=== PATIENT | male | born 1960 | race Two or more races ===

== ENCOUNTER 2024-05-22 09:35 | Emergency (ER) | payer MEDICAID, SELFPAY ==
[2024-05-22 09:36] VITALS: BMI 32.9
[2024-05-22 09:43] VITALS: BP 145/83; PULSE 58; RESP 20; TEMP 36.6; O2SAT 97
--- NOTE | 2024-05-22 09:57 | XR_ITS ---
Examination: PA lateral chest 2 views Technique: Upright PA lateral chest 2 views Exam date and time: May 22, 2024 0957 hrs. Indications: Right upper chest pain beginning 2 days ago. Findings: Mild to moderate enlargement left ventricle Atelectasis versus scarring in the anterior lateral to the lateral view Mild vascular congestion. No lobar pneumonia Impression: Mild vascular congestion
--- NOTE | 2024-05-22 09:57 | XR_ITS ---
Examination: Shoulder,right, 3 views Technique: Shoulder AP internal rotation, AP external rotation, Y view shoulder, 3 views Exam date and time :May 22, 2024 0957 hrs. Indications: Right shoulder pain beginning 2 days ago Findings: Moderate osteopenia Moderate narrowing glenohumeral joint Moderate osteoarthritis acromioclavicular joint No fracture or shoulder dislocation Impression: Moderate narrowing glenohumeral joint Moderate osteoarthritis acromioclavicular joint
--- NOTE | 2024-05-22 11:34 | EDNOTE_ITS ---
<Statement entered by Stephanie Lorenzo MD - 05/29/24 18:12> As co-signing physician, I was present and available for consult prn. I concur with the plan and care as documented by the midlevel provider. ED Chest Pain RME/HPI General Chief Complaint: Chest Pain Stated Complaint: R-SIDED CHEST PAIN RADIATING TO R UPPER BACK X2DAY Time Seen by Provider: 05/22/24 09:37 Arrival date/time: 05/22/24 09:35 63-year-old male presents emergency department with complaints of right-sided rib pain and shoulder pain worse with movement patient symptoms ongoing for last couple of days patient reports no shortness of breath no left-sided chest pain no headache dizziness or weakness Limitations: no limitations Related Data Home Medications ?Medication ?Instructions ?Recorded ?Confirmed diclofenac sodium 75 mg 75 mg PO BID ##0 12/19/14 tablet,delayed release fluticasone furoate 27.5 2 spry NASAL QDAY #0 spry 12/19/14 mcg/actuation nasal spray,suspension (Veramyst) Previous Rx's ?Medication ?Instructions ?Recorded cyclobenzaprine 10 mg tablet 10 mg PO TID PRN muscle spasm 10 05/22/24 days #30 tab-caps ibuprofen 800 mg tablet 800 mg PO TID PRN pain #30 tabs 05/22/24 Allergies Allergy/AdvReac Type Severity Reaction Status Date / Time NKA* Allergy Uncoded 05/22/24 09:40 Review of Systems Review of Systems Systems Reviewed: All systems reviewed, normal except as documented Constitutional Constitutional: Reports system reviewed and no additional complaints, except as documented, Denies fever(s) and Denies headache(s) Eyes Eyes: Reports system reviewed and no additional complaints, except as documented and Denies blurry vision ENT Ears, Nose, Mouth, and Throat: Reports system reviewed and no additional complaints, except as documented, Denies headache(s), Denies nasal congestion and Denies nasal discharge Cardiovascular Cardiovascular: Reports system reviewed and no additional complaints, except as documented, Denies chest pain and Denies dyspnea Respiratory Respiratory: Reports system reviewed and no additional complaints, except as documented, Denies chest congestion, Denies cough and Denies dyspnea Gastrointestinal Gastrointestinal: Reports system reviewed and no additional complaints, except as documented and Denies abdominal pain Musculoskeletal Musculoskeletal: Reports system reviewed and no additional complaints, except as documented and Reports other (Right-sided rib pain) Integumentary/Breasts Skin/Breast: Reports system reviewed and no additional complaints, except as documented and Denies rash Neurologic Neurologic: Reports system reviewed and no additional complaints, except as documented, Reports as per HPI and Denies headache(s) Past Medical History Social History SMOKING STATUS: Never smoker ED Exam General Limitations: Present no limitations General appearance: Present alert and in no apparent distress Head Head exam: Present atraumatic Eye Eye exam: Present normal appearance, PERRL and EOMI ENT ENT exam: Present normal exam, normal oropharynx and mucous membranes moist Neck Neck exam: Present normal inspection, full ROM and trachea midline; Absent tenderness Chest Chest inspection: Present tenderness (Right-sided rib pain) Respiratory Respiratory exam: Present normal lung sounds bilaterally; Absent respiratory distress, wheezes, stridor or accessory muscle use Cardiovascular Cardiovascular exam: Present regular rate, normal rhythm and normal heart sounds Abdominal Exam Abdominal exam: Present soft and normal bowel sounds; Absent distention, tenderness, guarding, rebound or rigidity Extremities Exam Extremities exam: Present normal inspection, full ROM, tenderness, normal capillary refill and other (Right shoulder pain) Back Exam Back exam: Present normal inspection and full ROM Neurological Exam Neurological exam: Present alert, oriented X3 and CN II-XII intact Psychiatric Psychiatric exam: Present normal affect and normal mood Skin Skin exam: Present warm, dry, intact and normal color Course Quality Measures none Orders Category Date Time Status XR chest 2V Stat Exams 05/22/24 09:57 Completed XR shoulder RT min 2V Stat Exams 05/22/24 09:57 Completed Vital Signs Vital signs: Vital Signs Temperature 97.8 F 05/22/24 09:43 Pulse Rate 58 L 05/22/24 09:43 Respiratory Rate 20 05/22/24 09:43 Blood Pressure 145/83 H 05/22/24 09:43 Pulse Oximetry (%) 97 05/22/24 09:43 Oxygen Delivery Method Room Air 05/22/24 09:43 O2 saturation 97% room air within normal limits. Chest Pain MDM Narrative MDM Narrative:: 63-year-old male presents emergency department with complaints of right-sided rib pain and shoulder pain worse with movement patient symptoms ongoing for last couple of days patient reports no shortness of breath no left-sided chest pain no headache dizziness or weakness On exam patient well-appearing patient's not appear toxic Imaging obtained no acute emergent findings noted X-ray does show some vascular congestion which I explained to the patient is to follow-up on an outpatient basis for cardiac workup As patient has no chest pain or shortness of breath patient be discharged home at this time Patient discharged home in no distress to follow-up with primary care doctor in the next 24 to 48 hours and for any worsening symptoms to return to the ER immediately Patient data External records reviewed:: [facility] previous records Clinical information provided by:: patient Social determinants that could affect healthcare access:: none Patient has the following chronic illnesses:: None How is presenting disease/condition affected by chronic disease/condition?: no chronic disease Evaluation data The following diagnostics were reviewed and interpreted by me:: radiology exam(s) Lab and/or radiology exams considered but not ordered:: Radiology obtain Interpretation Summary: Reviewed by me Medications / Prescriptions Medications or Prescriptions considered but not ordered:: Given Medication administrations:: Given Consultations Consultation(s) initiated? (list below): No Diagnosis Chest Pain Differential Diagnosis: fracture of rib, pneumothorax, atypical chest pain and costochondritis Most likely diagnosis given after review of the tests above:: Rib pain, shoulder pain, vascular congestion Admission Indicated Admission indicated?: not indicated Admission Request Was there a request for admission?: No Disposition Plan Disposition Plan: Discharge Discharge Attestation Discharge Attestation: The patient and all family members were given an opportunity to ask questions and understood the discharge instructions. Discharge instructions specifically effects, indications for sooner follow up or return to the emergency department, and the expected course of current diagnosis. Patient condition: Stable Discharge Plan Plan Patient Disposition: HOME (Self Care) Disposition Comment: Stable Prescriptions/Referrals Prescriptions/Med Rec: New cyclobenzaprine 10 mg tablet 10 mg PO TID PRN (Reason: muscle spasm) 10 Days Qty: 30 0RF ibuprofen 800 mg tablet 800 mg PO TID PRN (Reason: pain) Qty: 30 0RF No Action diclofenac sodium 75 MG tablet,delayed release (DR/EC) 75 mg PO BID Qty: 0 fluticasone furoate [Veramyst] 10 GM spray,suspension 2 spry NASAL QDAY Qty: 0 Referrals: Heide Finch FNP [Primary Care Provider] - 05/24/24 Problem List Clinical Impression: Acute shoulder pain, Rib pain on right side, Pulmonary vascular congestion Patient/Caregiver Discharge Instructions Education Materials: ED Chest Pain, Noncardiac Additional Instructions: Please follow up with your primary care doctor in the next 24-48hrs for any worsening symptoms return here immediately Please follow-up with PCP or to get a cardiac workup for vascular congestion Print Language: Uzbek Stand Alone Forms: Nay Award Info., Work/School Release, Patient Portal Info Letter PA/BUFFING AND SUEDING MACHINE OPERATOR Supervising Physician PA/BUFFING AND SUEDING MACHINE OPERATOR Supervising Physician: Dr. LORENZO
== END 2024-05-22 12:00 | disposition home or self-care (01) ==
PROVIDERS: Emergency Provider Emergency Medicine; PCP Nurse Practitioner Family
DX: R07.81 Pleurodynia (principal); M25.511 Pain in right shoulder; R09.89 Other specified symptoms and signs involving the circulatory and respiratory systems
CPT/HCPCS: 71046; 73030; 99283

== ENCOUNTER 2024-06-03 16:30 | Outpatient (RCR) | payer MEDICAID, SELFPAY ==
--- NOTE | 2024-05-17 15:21 | PTNOTE_ITS ---
PT OP Initial Eval Patient Information Outpatient Physical Therapy Treatment Date: 05/17/24 Visit Reasons: Pain in left shoulder Medical Diagnosis: M25.512 Treatment Dx #1: L shoulder pain Start of Care: 05/17/24 Date of Onset: 3 months ago Smoking Status Smoking Status: Never smoker Initial Assessment Subjective: Pt is 63 yr old malawian speaking male who reports L shoulder pain x3 months that limits reaching [place] and lifting things. He is not working outside the home but does HH chores sometimes with pain. He points to the scapulae as site of pain. 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 He would benefit from skilled therapy in order to meet goals and has fair rehab potential. Short Term and Penitentiary Goals 1. Ind with HEP ? 2. Improved AROM of R shoulder to at least 135 deg FF, 125 deg abduction and 90 deg ? ER ? 3. Tolerate work duties x6 hrs with <=3/10 L shoulder pain ? 4. Pt will reach [place] x10 with <=4/10 pain Treatment Plan 1. Manual therapy ? 2. Therex ? 3. Modalities as indicated, moist heat pack, ice, electrical stimulation, Frequency and Duration: 1-2x a week for 12 visits plus eval Certification Dates: 05/17/24 to 08/14/24 Procedure Charges OP PT Eval Mod Complex 30 minutes: Yes
--- NOTE | 2024-05-26 17:37 | PT.ODAYNRPT ---
PT Outpatient Daily Note OP Daily Note Outpatient Physical Therapy Treatment Date: 05/26/24 Visit Reasons: Pain in left shoulder Subjective: Less L shoulder pain since last visit Objective: See F/S for therex Assessment: Low tissue irritability with resistive therex Plan: Continue per POC Length of Time (minutes) of Treatment: 30 Minutes Procedure Charges Therapeutic Exercise 30 minutes: Yes
--- NOTE | 2024-06-03 19:18 | PT.ODAYNRPT ---
PT Outpatient Daily Note OP Daily Note Outpatient Physical Therapy Treatment Date: 06/03/24 Visit Reasons: Pain in left shoulder Subjective: Less L shoulder pain since last visit Objective: See F/S for therex Assessment: Low tissue irritability with resistive therex Plan: Continue per POC Length of Time (minutes) of Treatment: 30 Minutes Procedure Charges Therapeutic Exercise 30 minutes: Yes
== END 2024-06-04 23:59 | disposition home or self-care (01) ==
LOC: CPTX 16:30
PROVIDERS: PCP Nurse Practitioner Family; Referring Provider Nurse Practitioner Family; Visit Provider Nurse Practitioner Family
DX: M25.512 Pain in left shoulder (principal)
CPT/HCPCS: 97110; 97162

== ENCOUNTER 2024-06-09 15:19 | Outpatient (RCR) | payer MEDICAID, SELFPAY ==
--- NOTE | 2024-06-09 17:47 | PT.ODAYNRPT ---
PT Outpatient Daily Note OP Daily Note Outpatient Physical Therapy Treatment Date: 06/09/24 Visit Reasons: Pain in left shoulder Subjective: Less L shoulder pain since last visit Objective: See F/S for therex Assessment: Low tissue irritability with resistive therex Plan: Continue per POC Length of Time (minutes) of Treatment: 30 Minutes Procedure Charges Therapeutic Exercise 30 minutes: Yes
== END 2024-07-02 23:59 | disposition home or self-care (01) ==
LOC: CPTX 15:19
PROVIDERS: PCP Nurse Practitioner Family; Referring Provider Nurse Practitioner Family; Visit Provider Nurse Practitioner Family
DX: M25.512 Pain in left shoulder (principal); E11.9 Type 2 diabetes mellitus without complications; I10 Essential (primary) hypertension
CPT/HCPCS: 97110

== ENCOUNTER 2024-06-15 21:10 | Inpatient (IN) | payer MEDICAID, SELFPAY ==
--- NOTE | 2024-06-15 21:22 | EKG_ITS ---
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
[2024-06-15 21:25] VITALS: BP 170/88; PULSE 75; RESP 18; TEMP 36.7; O2SAT 97; BMI 30.1
--- NOTE | 2024-06-15 21:52 | XR_ITS ---
Examination: CT brain head without contrast. 2-D sagittal coronal reconstructions Date and time of exam:June 15, 2024 11:11 PM Indications: Headaches with left arm numbness today CTDI: vol (mGy):47.1 DLP: (mGycm):945 Technique: Multiple CT axial sections of the brain have been obtained, 5 mm slice thickness. Contrast has not been administered. 2-D sagittal, coronal reconstructions have been obtained Low dose protocols were performed. One or more of the following dose reduction techniques were used; automated exposure control, adjustment of the mA and/or KV according to patient size, use of iterative reconstruction technique. Findings: No significant ventricular enlargement. 15 mm low-density lesion posterior left parietal lobe Intra-axial or extra-axial hemorrhage density is not seen. No mass effect or midline shift Basal cisterns are not remarkable. Fourth ventricle is midline. Cranial vault intact. Impression: Negative for acute hemorrhage, mass effect or midline shift 15 mm low-density lesion posterior left parietal lobe, differential would include early infarct, early neoplastic lesion not excluded Recommend brain MRI MRA follow-up pre and postcontrast
--- NOTE | 2024-06-15 21:59 | PD.EDADULT ---
ED General RME/HPI General Chief complaint: General Adult/Misc Complain Stated complaint: LEFT ARM NUMBNESS Time Seen by Provider: 06/15/24 21:53 Arrival date/time: 06/15/24 21:10 RME / HPI RME / HPI narrative: Patient is a 63-year-old male who presents with complaint of his left arm being asleep . He states that approximately 2 hours ago he noticed that his left arm seemed heavy and seemed like it was asleep. He was able to move the extremity but says it felt very heavy. He states that this made him anxious. The symptoms resolved on arrival to the ED and he does not feel heaviness now. All symptoms have resolved. He denies any slurred speech or facial droop. Denies headache. Related Data Home Medications ?Medication ?Instructions ?Recorded ?Confirmed diclofenac sodium 75 mg 75 mg PO BID ##0 12/19/14 tablet,delayed release fluticasone furoate 27.5 2 spry NASAL QDAY #0 spry 12/19/14 mcg/actuation nasal spray,suspension (Veramyst) Previous Rx's ?Medication ?Instructions ?Recorded ibuprofen 800 mg tablet 800 mg PO TID PRN pain #30 tabs 05/22/24 Allergies Allergy/AdvReac Type Severity Reaction Status Date / Time NKA* Allergy Uncoded 06/15/24 21:12 Review of Systems Review of Systems Narrative Review of Systems: Review of systems negative except as outlined in the HPI. Past Medical History Social History SMOKING STATUS: Never smoker ED Exam Narrative Physical exam: Constitutional: no acute distress, age appropriate, non-toxic Eyes: PERRL, conjunctivae w/o pallor, EOMI HENT: normocephalic, atraumatic. Oral mucosa moist Respiratory Effort: no stridor, effort normal, no retractions Breath sounds: Clear bilaterally; No rales, No rhonchi, No wheezing Cardiovascular: regular rhythm, S1 and S2 normal, no murmur Musculoskeletal: no deformities, no swelling, no LE edema Skin: warm, dry; No rash Neurology: alert, oriented X 4. Normal gait. Cranial nerves II through XII intact. 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 Sensation intact to light touch bilateral upper extremities. 5 out of 5 strength bilateral upper extremities. Normal finger-nose. Psychology: cooperative, normal mood Course Quality Measures Suspected type of Stroke: TIA Last known well (date): 06/16/24 Last known well (time): 20:00 Tenecteplase given: Reason(s) TPA not given: Stroke severity too mild (non-disabling) (and neurologist did not recommend TPA) not given stroke Orders Category Date Time Status Economic Historian NOW Care 06/16/24 00:16 Active EKG (ED ONLY) *Do not use* NOW Care 06/15/24 21:22 Completed Insert IV NOW Care 06/16/24 00:16 Active NPO NOW Care 06/16/24 00:16 Active Consult to Neurology / Tele-Neurology Stat Cons 06/16/24 00:[address] head/brain wo con Stat Exams 06/15/24 21:52 Completed EKG (ED Only) Stat Exams 06/15/24 21:22 Draft CBC Stat Lab 06/15/24 22:11 Completed CMP [Comprehensive Metabolic Panel] Stat Lab 06/15/24 22:11 Completed Magnesium Stat Lab 06/16/24 00:19 Completed Partial Thromboplastin Time Stat Lab 06/16/24 00:19 Completed Prothrombin Time with INR Stat Lab 06/16/24 00:19 Completed Troponin I Stat Lab 06/15/24 22:11 Completed Urinalysis, C/S if Indicated Stat Lab 06/16/24 00:57 Ordered Aspirin Med 06/16/24 00:41 Discontinued 325 mg PO X1 ONE Clopidogrel [Plavix] Med 06/16/24 00:41 Discontinued 300 mg PO X1 ONE Vital Signs Vital signs: Vital Signs Temperature 98.1 F 06/15/24 21:25 Pulse Rate 75 06/15/24 21:25 Respiratory Rate 18 06/15/24 21:25 Blood Pressure 170/88 H 06/15/24 21:25 Pulse Oximetry (%) 97 06/15/24 21:25 Oxygen Delivery Method Room Air 06/15/24 21:25 [facility] Patient data External records reviewed:: [facility] previous records Clinical information provided by:: patient Social determinants that could affect healthcare access:: none Patient has the following chronic illnesses:: None How is presenting disease/condition affected by chronic disease/condition?: no chronic disease Evaluation data The following diagnostics were reviewed and interpreted by me:: lab results, radiology exam(s) and EKG tracing(s) Lab and/or radiology exams considered but not ordered:: None Interpretation Summary: EKG medically necessary in the evaluation of stroke symptoms and interpreted by me and ED physician at the time of patient evaluation. Sinus rhythm with a rate of 72. WI and QT intervals within normal limits. No ST/T changes. No STEMI. Interpretation: Normal EKG CBC shows no leukocytosis or anemia CMP shows no electrolyte abnormalities, no CESILIA. LFTs normal Troponin within normal limits Examination: CT brain head without contrast. 2-D sagittal coronal reconstructions Date and time of exam:June 15, 2024 11:11 PM Indications: Headaches with left arm numbness today Findings: No significant ventricular enlargement. 15 mm low-density lesion posterior left parietal lobe Intra-axial or extra-axial hemorrhage density is not seen. No mass effect or midline shift Basal cisterns are not remarkable. Fourth ventricle is midline. Cranial vault intact. Impression: Negative for acute hemorrhage, mass effect or midline shift 15 mm low-density lesion posterior left parietal lobe, differential would include early infarct, early neoplastic lesion not excluded Recommend brain MRI MRA follow-up pre and postcontrast Medications Medications considered but not ordered:: None Medication administrations:: Medication Administration History Discontinued Medications Aspirin (Aspirin 325 Mg Tablet) 325 mg PO X1 ONE Stop: 06/16/24 00:42 Last Admin: 06/16/24 01:08 Dose: 325 mg Documented By: JULIEN Clopidogrel Bisulfate (Clopidogrel Bisulfate 75 Mg Tablet) 300 mg PO X1 ONE Stop: 06/16/24 00:42 Last Admin: 06/16/24 01:07 Dose: 300 mg Documented By: JULIEN N/A Consultations Consultation(s) initiated? (list below): No Diagnosis Differential Diagnosis ED Complaint MDM: See MDM section Most likely diagnosis given after review of the tests above:: TIA Admission Indicated Admission indicated?: indicated Explain why admission is indicated or not indicated:: Patient requires admission for stroke workup Admission Request Was there a request for admission?: Yes Admission Attestation Admission request attestation: Discussed case with resident, Dr. Cid from Hospitalist service regarding admission. Discussed patients ED course, exam findings, labs, and radiology results. The Hospitalist agrees to accept the patient for admission. Disposition Plan Disposition Plan: Admit Medical Decision Making MDM Narrative MDM Narrative: 63-year-old male presents with heaviness of his left upper extremity. His neurologic exam is nonfocal and his symptoms have resolved. Differential diagnoses include TIA, stroke, anxiety, psychosomatic symptoms, cervical radiculopathy. 0010: CT shows a 15 mm infarct vs neoplasm. A stroke alert was called at 0010. Case discussed with Dr. Acuna 0045: Case discussed with teleneurologist on-call, Dr. Landrum, recommends aspirin and Plavix, and admission for stroke workup NIHSS: 0 Patient started on loading dose of aspirin and Plavix per neurology recommendation. Case was discussed with hospitalist resident and patient will be admitted to the hospitalist service for further care Differential Diagnosis Differential Diagnosis: See MDM section Lab Data 06/15/24 22:11 06/15/24 22:11 Labs: Lab Results 06/15/24 06/16/24 Range/Units 22:11 00:19 WBC 8.9 (3.8-10.6) Thou/mm3 RBC 4.20 L (4.50-5.90) Miln/mm3 Hgb 13.2 L (13.5-16.0) g/dL Hct 38.8 L (41.0-53.0) % MCV 92 (80-100) fL MCH 31.4 (25.0-35.0) pg MCHC 34.0 (31.0-37.0) g/dl RDW Std Deviation 43.8 (35.1-43.9) fL Plt Count 383 (140-440) Thou/mm3 Neut % (Auto) 61 (37-80) % Lymph % (Auto) 27 (10-50) % [place] % (Auto) 8 (0-12) % Eos % (Auto) 4 (0-10) % Baso % (Auto) 1 (0-2.5) % Neut # (Auto) 5.4 (1.8-7.7) Thou/mm3 Lymph # (Auto) 2.4 (1.0-4.8) Thou/mm3 [place] # (Auto) 0.7 (0.0-0.8) Thou/mm3 Eos # (Auto) 0.3 (0.0-0.5) Thou/mm3 Baso # (Auto) 0.1 (0.0-0.2) Thou/mm3 Immature Gran # (Auto) 0.01 H (0.00-0.00) Thou/mm3 Absolute Nucleated RBC 0.00 (0.00-0.00) Thou/mm3 Immature Gran % 0 (0-0) % Nucleated RBC % 0 (0) /100 WBC PT 10.8 (9.0-12.2) Seconds INR 1.0 (0.9-1.3) APTT 26.9 (22.0-36.0) Seconds Sodium 144 (136-145) mMol/L Potassium 3.5 (3.4-5.1) mMol/L Chloride 108 H (98-107) mMol/L Carbon Dioxide 28.8 (20.0-31.0) mMol/L Anion Gap 7 (7-16) BUN 14 (9-23) mg/dL Creatinine 0.7 (0.6-1.3) mg/dL Estim Creat Clear Calc 109.3 (>60) mL/min eGFR > 60 (60 - ) See Note BUN/Creatinine Ratio 20 (12-20) Ratio Glucose 150 H (74-106) mg/dL Calculated Osmolality 290 (275-295) Calcium 9.8 (8.3-10.6) mg/dL Corrected Calcium 9.8 (8.5-10.1) mg/dL Magnesium 2.3 (1.6-2.6) mg/dL Total Bilirubin 0.5 (0.3-1.2) mg/dL AST 21 (0-34) U/L ALT 26 (10-49) U/L Alkaline Phosphatase 71 (46-116) U/L Troponin I < 0.020 (0.0-0.045) ng/mL Total Protein 7.9 (5.7-8.2) gm/dL Albumin 4.8 (3.4-4.8) gm/dL Globulin 3.1 (2.3-3.5) gm/dL Albumin/Globulin Ratio 1.5 (1.2-2.2) Critical Care Time Critical Care Time Critical Care Time: Yes Total Critical Care Time (min.): 35 Attestation: Due to a high probability of clinically significant, life threatening deterioration, the patient required my highest level of preparedness to intervene emergently and I personally spent this critical care time directly and personally managing the patient. This critical care time included obtaining a history; examining the patient; pulse oximetry; ordering and review of studies; arranging urgent treatment with development of a management plan; evaluation of patient's response to treatment; frequent reassessment; and, discussions with other providers. This critical care time was performed to assess and manage the high probability of imminent, life-threatening deterioration that could result in multi-organ failure. It was exclusive of separately billable procedures and treating other patients. Please see MDM section and the rest of the note for further information on patient assessment and treatment. Systems at risk: Neurologic Discharge Plan Plan Patient Disposition: Admit Acute Care w/in Hospital Prescriptions/Referrals Prescriptions/Med Rec: No Action diclofenac sodium 75 MG tablet,delayed release (DR/EC) 75 mg PO BID Qty: 0 fluticasone furoate [Veramyst] 10 GM spray,suspension 2 spry NASAL QDAY Qty: 0 ibuprofen 800 mg tablet 800 mg PO TID PRN (Reason: pain) Qty: 30 0RF Referrals: Heide Finch FNP [Primary Care Provider] - In 1 week Problem List Clinical Impression: Brain TIA, Left arm weakness Patient/Caregiver Discharge Instructions Print Language: Indonesian Stand Alone Forms: Nay Award Info., Patient Portal Info Letter
[2024-06-15 22:36] LABS: Basophils % (Auto) 1 % (0-2.5); Eosinophils % (Auto) 4 % (0-10); Hematocrit 38.8 % (41.0-53.0); Hemoglobin 13.2 g/dL (13.5-16.0); Lymphocytes # (Auto) 2.4 Thou/mm3 (1.0-4.8); Lymphocytes % (Auto) 27 % (10-50); Mean Corpuscular Hemoglobin 31.4 pg (25.0-35.0); Mean Corpuscular Volume 92 fL (80-100); Monocytes # (Auto) 0.7 Thou/mm3 (0.0-0.8); Monocytes % (Auto) 8 % (0-12); Neutrophils # (Auto) 5.4 Thou/mm3 (1.8-7.7); Neutrophils % (Auto) 61 % (37-80); Platelet Count 383 Thou/mm3 (140-440); RDW Standard Deviation 43.8 fL (35.1-43.9); White Blood Count 8.9 Thou/mm3 (3.8-10.6)
[2024-06-15 22:37] LABS: Basophils # (Auto) 0.1 Thou/mm3 (0.0-0.2); Eosinophils # (Auto) 0.3 Thou/mm3 (0.0-0.5); Immature Granulocytes % (Auto) 0 % (0-0); Immature Granulocytes Auto 0.01 Thou/mm3 (0.00-0.00); Nucleated Red Blood Cell % 0 /100 WBC (0)
[2024-06-15 22:58] LABS: Alanine Aminotransferase 26 U/L (10-49); Albumin, Serum 4.8 gm/dL (3.4-4.8); Albumin/Globulin Ratio 1.5 (1.2-2.2); Alkaline Phosphatase 71 U/L (46-116); Anion Gap 7 (7-16); Aspartate Amino Transferase 21 U/L (0-34); BUN/Creatinine Ratio 20 Ratio (12-20); Bilirubin,Total 0.5 mg/dL (0.3-1.2); Blood Urea Nitrogen 14 mg/dL (9-23); Calcium 9.8 mg/dL (8.3-10.6); Calcium (Corrected) 9.8 mg/dL (8.5-10.1); Carbon Dioxide 28.8 mMol/L (20.0-31.0); Chloride 108 mMol/L (98-107); Creatinine (Component) 0.7 mg/dL (0.6-1.3); Estimated Creatinine Clearance 109.3 mL/min (>60); Globulin 3.1 gm/dL (2.3-3.5); Glucose 150 mg/dL (74-106); Osmolality,Calculated 290 (275-295); Potassium 3.5 mMol/L (3.4-5.1); Sodium 144 mMol/L (136-145); Total Protein 7.9 gm/dL (5.7-8.2); Troponin I < 0.020 ng/mL (0.0-0.045); eGFR > 60 See Note
[2024-06-16] VITALS (39 sets, daily range): BP systolic 130–172; BP diastolic 63–94; PULSE 56–74; RESP 11–22; TEMP 36.5–36.7; O2SAT 94–98
--- NOTE | 2024-06-16 | XR_ITS ---
Examination: MRI brain without intravenous contrast. Date and time of exam: May 16, 2024 at 0715 hrs. Indications: Onset yesterday and eighth left arm numbness weakness Technique: Multiple axial and sagittal images of the brain obtained. Siemens high-resolution 1.5 Beatrice short bore scanners utilized. Sagittal sections, T1-weighted, TR 500, TE 14, are performed. Axial sections proton-density and T2-weighted have been obtained. Inversion recovery axial images, TR 9, 260, TE 111, TI 2500. Diffusion weighted images, axial sections, TR 4800, TE 128, B value 1000 Axial sections, ADC map, TR 4800, TE 128 Findings: Enlargement of the sella turcica is not present. The optic chiasm and infundibular are not remarkable. Prepontine and interpeduncular cisterns are not enlarged. There is no localized enlargement of the medulla or marta. Fourth ventricle and cerebellar tonsils appear normal in position. No subacute area of hemorrhage density is seen. Mass in the cerebellopontine angle region is not evident. Globes symmetrical. Orbital musculature including medial lateral rectus muscles do not exhibit abnormality. Diffusion-weighted images demonstrate no focus of restricted diffusion. Increased white matter signal prominent, multiple punctate foci increased signal throughout the white matter Mass effect upon the ventricular system is not identified. Impression: Negative for acute hemorrhage mass effect or midline shift No acute infarct Multiple punctate foci increased signal throughout the white matter, seen with demyelinating disease, clinical correlation advised
--- NOTE | 2024-06-16 00:13 | PC.NURSE ---
[facility] CASE # [id number].
--- NOTE | 2024-06-16 00:36 | PC.NURSE ---
PATIENT DENIES ANY PAIN AT THIS TIME, STATES ALL NUMBNESS AND EVERYTHING HE FELT AT HOME IS GONE.
--- NOTE | 2024-06-16 00:43 | ESCONSULT_ITS ---
Tele Neuro Consultation Consultation Date 06/16/24 Most Recent Vital Signs Last Vital Signs Temp 97.9 F 06/16/24 00:20 Pulse 63 06/16/24 00:34 Resp 17 06/16/24 00:34 BP 156/63 H 06/16/24 00:34 Pulse Ox 96 06/16/24 00:34 O2 Del Method Room Air 06/16/24 00:20 Consultation Narrative [facility] Tele[facility] Patient Name:???Matthew White Date of :???1960 Identification Number:??? Date of Service:???06/16/2024 00:13:07 Diagnosis: ?G45.9 - Transient cerebral ischemic attack, unspecified Impression: ?63 yo M who presented for evaluation of acute onset of LUE numbness and heaviness. His symptoms improved, and neurologic exam was grossly non-focal. Overall, his presentation is concerning for possible TIA. Recommend empiric initiation of DAPT and admission for further stroke/TIA workup as discussed below. Our recommendations are outlined below. Recommendations: ? Stroke/Telemetry Floor ? Neuro Checks ? Bedside Swallow Eval ? DVT Prophylaxis ? IV Fluids, Normal Saline ? Head of Bed 30 Degrees ? Euglycemia and Avoid Hyperthermia (PRN Acetaminophen) ?Please load with ASA 325 mg followed by 81 mg daily thereafter ?Please load with Plavix 300 mg followed by 75 mg daily thereafter ?Routine MRI brain without contrast to evaluate for acute stroke ?Routine CTA head and neck to evaluate for large artery atherosclerotic disease; may alternatively obtain MRA head/neck without contrast if preferred ?TTE to assess for intracardiac abnormalities ?Telemetry to monitor for occult arrhythmias ?Lipid panel and hemoglobin A1c to assess for modifiable stroke risk factors Sign Out: ? Discussed with Emergency Department Provider Advanced Imaging: Advanced Imaging Deferred because: Non-disabling symptoms as verified by the patient; no cortical signs so not consistent with LVO Metrics: Last Known Well: 06/15/2024 20:00:00 Dispatch Time: 06/16/2024 00:13:07 Arrival Time: 06/15/2024 21:10:00 Initial Response Time: 06/16/2024 00:14:36Symptoms: LUE numbness/heaviness. Initial patient interaction: 06/16/2024 00:18:05 NIHSS Assessment Completed: 06/16/2024 00:27:09Patient is not a candidate for Thrombolytic. Thrombolytic Medical Decision: 06/16/2024 00:27:10Patient was not deemed candidate for Thrombolytic because of following reasons: Resolved symptoms . CT head showed no acute hemorrhage or acute core infarct. I personally Reviewed the CT Head and it Showed no acute process Primary Provider Notified of Diagnostic Impression and Management Plan on: 06/16/2024 00:42:46 History of Present Illness:Patient is a 63 year old Male. Patient was brought by private transportation with symptoms of LUE numbness/heaviness. Patient was last known normal around 8 PM on 06/15. Around that time, patient developed acute onset of LUE numbness followed by heaviness. He denied any hi story of similar symptoms and further denied any associated headache, speech changes, vision changes, or right-sided deficits. Since symptom onset, patient reports that his symptoms have resolved. Past Medical History: ?Hypertension ?Diabetes Mellitus ?Hyperlipidemia Medications: No Anticoagulant use? No Antiplatelet use Reviewed EMR for current medications Allergies:? NKDA Social History: Smoking: Former Family History: There is no family history of premature cerebrovascular disease pertinent to this consultation ROS : 14 Points Review of Systems was performed and was negative except mentioned in HPI. Past Surgical History: There Is No Surgical History Contributory To Today?s Visit Examination: BP(153/63),?Pulse(63), 1A: Level of Consciousness - Alert; keenly responsive?+ 0 1B: Ask Month and Age - Both Questions Right?+ 0 1C: Blink Eyes & Squeeze Hands - Performs Both Tasks?+ 0 2: Test Horizontal Extraocular Movements - Normal?+ 0 3: Test Visual Reynoso - No Visual Loss?+ 0 4: Test Facial Palsy (Use Grimace if Obtunded) - Normal symmetry?+ 0 5A: Test Left Arm Motor Drift - No Drift for 10 Seconds?+ 0 5B: Test Right Arm Motor Drift - No Drift for 10 Seconds?+ 0 6A: Test Left Leg Motor Drift - No Drift for 5 Seconds?+ 0 6B: Test Right Leg Motor Drift - No Drift for 5 Seconds?+ 0 7: Test Limb Ataxia (FNF/Heel-Hyde) - No Ataxia?+ 0 8: Test Sensation - Normal; No sensory loss?+ 0 9: Test Language/Aphasia - Normal; No aphasia?+ 0 10: Test Dysarthria - Normal?+ 0 11: Test Extinction/Inattention - No abnormality?+ 0 NIHSS Score:?0 Pre-Morbid Modified Upson Scale:0 Points = No symptoms at all Spoke with :?Thiago Perdomo This consult was conducted in real time using interactive audio and video technology. Patient was informed of the technology being used for this visit and agreed to proceed. Patient located in hospital and provider located at home/o ice setting. Patient is being evaluated for possible acute neurologic impairment and high probability of imminent or life-threatening deterioration. I spent total of 30 minutes providing care to this patient, including time for face to face visit via telemedicine, review of medical records, imaging studies and discussion of findings with providers, the patient and/or family. Dr Rodney Landrum [facility] For Inpatient follow-up with [facility] physician please call [facility] at . As we are not an outpatient service for any post hospital discharge needs please contact the hospital for assistance. If you have any questions for the [facility] physicians or need to reconsult for clinical or diagnostic changes please contact us via [facility] at .
--- NOTE | 2024-06-16 00:52 | PD.TNEURO ---
Tele Neuro Consultation Consultation Date 06/16/24 Most Recent Vital Signs Last Vital Signs Temp 97.9 F 06/16/24 00:20 Pulse 63 06/16/24 00:34 Resp 17 06/16/24 00:34 BP 156/63 H 06/16/24 00:34 Pulse Ox 96 06/16/24 00:34 O2 Del Method Room Air 06/16/24 00:20 Consultation Narrative [facility] Patient Name:???Matthew White Date of :???1960 Identification Number:??? Date of Service:???06/16/2024 00:13:07 Diagnosis: ?G45.9 - Transient cerebral ischemic attack, unspecified Impression: ?63 yo M who presented for evaluation of acute onset of LUE numbness and heaviness. His symptoms improved, and neurologic exam was grossly non-focal. Overall, his presentation is concerning for possible TIA. Recommend empiric initiation of DAPT and admission for further stroke/TIA workup as discussed below. Our recommendations are outlined below. Recommendations: ? Stroke/Telemetry Floor ? Neuro Checks ? Bedside Swallow Eval ? DVT Prophylaxis ? IV Fluids, Normal Saline ? Head of Bed 30 Degrees ? Euglycemia and Avoid Hyperthermia (PRN Acetaminophen) ?Please load with ASA 325 mg followed by 81 mg daily thereafter ?Please load with Plavix 300 mg followed by 75 mg daily thereafter ?Routine MRI brain without contrast to evaluate for acute stroke ?Routine CTA head and neck to evaluate for large artery atherosclerotic disease; may alternatively obtain MRA head/neck without contrast if preferred ?TTE to assess for intracardiac abnormalities ?Telemetry to monitor for occult arrhythmias ?Lipid panel and hemoglobin A1c to assess for modifiable stroke risk factors Sign Out: ? Discussed with Emergency Department Provider Advanced Imaging: Advanced Imaging Deferred because: Non-disabling symptoms as verified by the patient; no cortical signs so not consistent with LVO Metrics: Last Known Well: 06/15/2024 20:00:00 Dispatch Time: 06/16/2024 00:13:07 Arrival Time: 06/15/2024 21:10:00 Initial Response Time: 06/16/2024 00:14:36Symptoms: LUE numbness/heaviness. Initial patient interaction: 06/16/2024 00:18:05 NIHSS Assessment Completed: 06/16/2024 00:27:09Patient is not a candidate for Thrombolytic. Thrombolytic Medical Decision: 06/16/2024 00:27:10Patient was not deemed candidate for Thrombolytic because of following reasons: Resolved symptoms . CT head showed no acute hemorrhage or acute core infarct. I personally Reviewed the CT Head and it Showed no acute process Primary Provider Notified of Diagnostic Impression and Management Plan on: 06/16/2024 00:42:46 History of Present Illness:Patient is a 63 year old Male. Patient was brought by private transportation with symptoms of LUE numbness/heaviness. Patient was last known normal around 8 PM on 06/15. Around that time, patient developed acute onset of LUE numbness followed by heaviness. He denied any history of similar symptoms and further denied any associated headache, speech changes, vision changes, or right-sided deficits. Since symptom onset, patient reports that his symptoms have resolved. Past Medical History: ?Hypertension ?Diabetes Mellitus ?Hyperlipidemia Medications: No Anticoagulant use? No Antiplatelet use Reviewed EMR for current medications Allergies:? NKDA Social History: Smoking: Former Family History: There is no family history of premature cerebrovascular disease pertinent to this consultation ROS : 14 Points Review of Systems was performed and was negative except mentioned in HPI. Past Surgical History: There Is No Surgical History Contributory To Today?s Visit Examination: BP(153/63),?Pulse(63), 1A: Level of Consciousness - Alert; keenly responsive?+ 0 1B: Ask Month and Age - Both Questions Right?+ 0 1C: Blink Eyes & Squeeze Hands - Performs Both Tasks?+ 0 2: Test Horizontal Extraocular Movements - Normal?+ 0 3: Test Visual Reynoso - No Visual Loss?+ 0 4: Test Facial Palsy (Use Grimace if Obtunded) - Normal symmetry?+ 0 5A: Test Left Arm Motor Drift - No Drift for 10 Seconds?+ 0 5B: Test Right Arm Motor Drift - No Drift for 10 Seconds?+ 0 6A: Test Left Leg Motor Drift - No Drift for 5 Seconds?+ 0 6B: Test Right Leg Motor Drift - No Drift for 5 Seconds?+ 0 7: Test Limb Ataxia (FNF/Heel-Hyde) - No Ataxia?+ 0 8: Test Sensation - Normal; No sensory loss?+ 0 9: Test Language/Aphasia - Normal; No aphasia?+ 0 10: Test Dysarthria - Normal?+ 0 11: Test Extinction/Inattention - No abnormality?+ 0 NIHSS Score:?0 Pre-Morbid Modified [place] Scale:0 Points = No symptoms at all Spoke with :?Thiago Perdomo This consult was conducted in real time using interactive audio and video technology. Patient was informed of the technology being used for this visit and agreed to proceed. Patient located in hospital and provider located at home/office setting. Patient is being evaluated for possible acute neurologic impairment and high probability of imminent or life-threatening deterioration. I spent total of 30 minutes providing care to this patient, including time for face to face visit via telemedicine, review of medical records, imaging studies and discussion of findings with providers, the patient and/or family. Dr Rodney Landrum [facility] For Inpatient follow-up with [facility] physician please call [facility] at . As we are not an outpatient service for any post hospital discharge needs please contact the hospital for assistance. If you have any questions for the [facility] physicians or need to reconsult for clinical or diagnostic changes please contact us via C at .
[2024-06-16 01:00] LABS: Partial Thromboplastin Time 26.9 Seconds (22.0-36.0); Prothrombin Time 10.8 Seconds (9.0-12.2)
[2024-06-16 01:05] LABS: Magnesium 2.3 mg/dL (1.6-2.6)
[2024-06-16] MEDS: CLOPIDOGREL BISULFATE 75 MG TABLET 300 MG PO (01:07)
[2024-06-16] MEDS: Aspirin 325 MG TABLET PO (01:08)
--- NOTE | 2024-06-16 01:52 | ESHP_ITS ---
Documentation for date of: 06/16/24 [facility] History of Present Illness History of present illness: This is a 63-year-old male with PMHx of of HTN, HLD, T2DM, chronic shoulder pain, presented as a stroke alert with acute left upper extremity numbness and heaviness that started 2 hours prior. States he was sitting in his chair watching TV, when he felt a funny sensation in his left arm which became numbed. He was found to move his arm and shake it to get ready numbness, after which he noticed that his left arm was heavy compared to the right. Stated symptoms lasted about 30 minutes and resolved spontaneous. By the time he presented to the ED he was having no symptoms. Denies history of similar symptoms. Denies fall, trauma, fevers, chills, headaches, visual, auditory changes, loss of consciousness, seizure-like activity, chest pain or palpitation, shortness of breath, GI or urinary symptoms. ED COURSE: Afebrile, BP 170/88, HR 75, RR 18, satting 97% on room air. CBC showed Hgb 13.2, otherwise WNL. Normal coag studies. Chemistry panel remarkable. EKG shows sinus rhythm with fascicular block, no acute ST changes. CT head showed 15 mm low-density lesion in the posterior left parietal lobe. PMHx: HTN, HLD, T2DM, chronic shoulder pain PSHx: Distant nasoplasty MEDS: AMLODIPINE 10 mg daily, ATORVASTATIN 20 mg, CYCLOBENZAPRINE 10 mg TID, METFORMIN 500 mg BID ALLERGIES: NKA FHx: Brother of ESRD at age of 50s. SH: Previous tobacco smoker, quit years ago. Occasional alcohol use. No drug use. Exam Vital Signs Temp Pulse Resp BP Pulse Ox O2 Del Method 97.9 F 63 17 156/63 H 96 Room Air 06/16/24 00:20 06/16/24 00:34 06/16/24 00:34 06/16/24 00:34 06/16/24 00:34 06/16/24 00:20 Narrative Exam Generally normal exam. GENERAL * Normal appearing adult male, no apparent distress. HEENT * NCAT.?THIERRY. Oral mucosa is moist. Patent Nares NECK * Supple, nontender, no thyromegaly, no meningismus, no JVD, no step offs CHEST * RRR, no m/g/r * CTAB, no w/r/r. Symmetrical chest rise. No intercostal subcostal retraction * Atraumatic, nontender, no crepitus, symmetrical expansion. ABDOMEN * Soft, flat, nontender. No guarding/rebound tenderness/masses. * Bowel sounds presents EXTREMITIES * Nontender, no cyanosis, no edema * No edema/cyanosis.? SKIN * Warm and dry, no jaundice/rashes. NEUROMUSCULAR * No lumbar or midline, no CVA, no paraspinal muscle spasm or tenderness. * Moves all 4 extremities well, with full ROM and good CSM. * DAILEY x4, CN II-XII grossly intact. * No focal neurologic deficits. PSYCHIATRY * Normal mood and affect, cooperative, no SI or HI or hallucinations. Results: Labs 06/15/24 22:11 06/15/24 22:11 Labs: Short CBC 06/15/24 Range/Units 22:11 WBC 8.9 (3.8-10.6) Thou/mm3 Hgb 13.2 L (13.5-16.0) g/dL Hct 38.8 L (41.0-53.0) % Plt Count 383 (140-440) Thou/mm3 BMP 06/15/24 22:11 Sodium 144 Potassium 3.5 Chloride 108 H Carbon Dioxide 28.8 BUN 14 Creatinine 0.7 Glucose 150 H Calcium 9.8 Cardiac Enzymes 06/15/24 Range/Units 22:11 Troponin I < 0.020 (0.0-0.045) ng/mL Liver Function 06/15/24 Range/Units 22:11 Total Bilirubin 0.5 (0.3-1.2) mg/dL AST 21 (0-34) U/L ALT 26 (10-49) U/L Alkaline Phosphatase 71 (46-116) U/L Albumin 4.8 (3.4-4.8) gm/dL Quality Measures Quality Measures stroke Suspected type of Stroke: TIA Last known well (date): 06/16/24 Last known well (time): 20:00 Tenecteplase given: Reason(s) Tenecteplase not given: Stroke severity too mild (non-disabling) (and neurologist did not recommend TPA) not given Rehab services: PT evaluation ordered VTE Prophylaxis: mechanical Antithrombotic by day 2:: ordered Statin ordered: >75 y/o moderate or high intensity dose Anticoagulation ordered for A-fib or flutter (current or hx): not indicated Medications Home Medications and Allergies Home Medications ?Medication ?Instructions ?Recorded ?Confirmed ?Type diclofenac sodium 75 mg 75 mg PO BID ##0 12/19/14 H istory tablet,delayed release fluticasone furoate 27.5 2 spry NASAL QDAY #0 spry History mcg/actuation nasal spray,suspension (Veramyst) Allergies Allergy/AdvReac Type Severity Reaction Status Date / Time NKA* Allergy Uncoded 06/15/24 21:12 Visit Medications Discontinued Medications Aspirin (Aspirin 325 Mg Tablet) 325 mg PO X1 ONE Stop: 06/16/24 00:42 Last Admin: 06/16/24 01:08 Dose: 325 mg Clopidogrel Bisulfate (Clopidogrel Bisulfate 75 Mg Tablet) 300 mg PO X1 ONE Stop: 06/16/24 00:42 Last Admin: 06/16/24 01:07 Dose: 300 mg Assessment & Plan Plan In summary: 63-year-old male with PMHx of of HTN, HLD, T2DM, chronic shoulder pain, presented with left upper extremity numbness and heaviness. Admitted for stroke rule out. Appreciate recommendations from neurology. TIA, most likely Stroke rule out LUE heaviness/numbness that started 2 hours prior to admission. Symptoms lasted about 30 minutes and resolved spontaneously. Normal neurological exam. No previously similar symptoms in the past. CT head showed 15 mm low-density lesion in the posterior left parietal lobe. EKG showed sinus with first-degree block, no acute ST changes. Teleneuro consulted, recommendations as below. ? Seizure precaution ? Head elevation >30 degrees ? Permissive hypertension ? Continue LABETALOL 10 mg for BP >220/110 ? Continue TYLENOL for fever ? Continue ASPIRIN 81 mg daily ? Continue PLAVIX 75 mg daily ? Continue maintenance fluids at 75 cc/H ? Pending bedside swallow eval ? Pending speech evaluation ? Pending physical therapy evaluation ? Pending lipid panel, TSH, A1c, echocardiogram ? Pending neurology recommendations ? Pending MRI brain, CTA head/neck HTN, HLD ? Allow permissive hypertensive ? LABETALOL and statin on board ? Resume home AMLODIPINE 10 mg daily when appropriate T2DM Admission GLUCOSE 150. No recent A1c on file. ? Sliding scale INSULIN ? Accu-Cheks ? Follow-up A1c Chronic shoulder pain Will hold home CYCLOBENZAPRINE 10 mg TID in settings of stroke rule out. ? Resume when able to Health maintenance Diet: CHO consistent GI prophylaxis: PROTONIX DVT prophylaxis: SCD Antibiotics: Not indicated CODE STATUS: Full code Disposition: Stroke rule out Patient case was discussed with attending, Geo Whatley MD. Jesús Alcaraz DO PGYI Attending Provider Attestation/Addendum 63-year-old male patient with hypertension diabetes and dyslipidemia was admitted for left upper extremity weakness and numbness. CT scan of the brain showed 15 mm low-density lesion in the posterior left parietal lobe. Patient was admitted. He will undergo MRI study. Continue neurochecks. Neurology evaluation requested.
--- NOTE | 2024-06-16 01:54 | ECHO_ITS ---
Transthoracic Echo Report Ht (in): 65 Wt (lb): 181 Exam Location: Echo Lab Status: Emergency Parimutuel Ticket Checker: JUSTINO Blankenship Indications: Procedure Performed: BP: 153 / 83 HR: Technical Quality: Fair MEASUREMENTS (Male / Female) Normal Values 2D ECHO LA Systolic Diameter LX 4.0 cm 3.0 - 4.0 / 2.7 - 3.8 cm LV Ejection Fraction MOD 4C 55.7 % DOPPLER AV Peak Velocity 161.0 cm/s AV Peak Gradient 10.4 mmHg AV Mean Gradient 5.5 mmHg AV Velocity Time Integral 25.6 cm LVOT Peak Gradient 4.3 mmHg LVOT Velocity Time Integral 25.0 cm TR Peak Velocity 179.5 cm/s TR Peak Gradient 12.9 mmHg PV Peak Gradient 4.9 mmHg Pulmonary Artery Diastolic Press 8.8 mmHg FINDINGS Left Ventricle Normal left ventricular size, wall thickness, systolic function with no obvious regional wall motion abnormalities. There is grade I diastolic dysfunction of the left ventricle (impaired relaxation pattern). The left ventricular ejection fraction is normal, estimated at 55-60%. Right Ventricle The right ventricle is normal in size and systolic function. The estimated right ventricular systolic pressure, 22 mmHg. Left Atrium The left atrium is normal by two-dimensional, color flow and Doppler imaging with no structural abnormalities, no thrombus formation present. Right Atrium The right atrium is normal by two-dimensional imaging, color flow and Doppler imaging with no structural abnormalities, no thrombus formation present. Atrial Septum The interatrial septum is normal to color flow Doppler and agitated saline imaging. Aorta The aorta is normal by two-dimensional, color flow and Doppler interrogation. Mitral Valve Structurally normal mitral valve. Mild mitral regurgitation. Mild MAC Aortic Valve The aortic valve is trileaflet and normal to two-dimensional, color flow and Doppler interrogation. Tricuspid Valve There is mild tricuspid valve regurgitation. Pulmonic Valve Mild pulmonic valve regurgitation. Vessels The pulmonary artery appears normal. The inferior vena cava pulmonary and hepatic veins appear normal. Pericardium The pericardium is normal by two-dimensional imaging. There is no significant pericardial effusion. CONCLUSIONS indications: Stroke, Negative Bubble study LV is normal with EF of 55-60%, Diastolic Dysfunction I RV is normal, There is an estimated RVSP of 27 mmHg IAS is normal with no shunt present. Bubble study performed = negative mild mitral and tricuspid regurgitation Francia Marie (Electronically Signed) Final Date: 16 June 2024 23:46
--- NOTE | 2024-06-16 02:11 | XR_ITS ---
Examination: CTA carotids with intravenous contrast CTA brain, head with intravenous contrast. 2-D sagittal, coronal reconstructions. 3-D reconstructions. Exam date and time: June 16, 2024 0450 hrs. Indications: Headaches with left arm numbness today, focal neurologic deficits, stroke symptoms CTDI: vol (mGy) 10.9 DLP: (mGycm) 441 Technique: Multiple CTA axial brain, head carotid images post intravenous contrast injection 75 cc, [id number]. 2-D sagittal, coronal reconstructions. 3-D reconstructions, 3-D post processing including vascular maximum intensity projection images. Low dose protocols were performed. One or more of the following dose reduction techniques were used; automated exposure control, adjustment of the mA and/or KV according to patient size, use of iterative reconstruction technique. Findings: No significant common carotid carotid bifurcation or internal carotid artery stenoses No vertebral artery significant stenoses No cerebral large vessel arterial occlusions, thrombus, dissection or cerebral aneurysm Impression: No significant neck arterial stenoses No cerebral large vessel arterial occlusions, thrombus, dissection or cerebral aneurysm Recommend brain MRI MRA, stroke protocol, without contrast follow-up
[2024-06-16 02:30] LABS: Collection Type, Urine Clean Catch
[2024-06-16 02:36] LABS: Bilirubin,Urine Negative (Negative); Blood,Urine Negative (Negative); Budding Yeast,Urine Present; Clarity,Urine Turbid (Clear/Hazy); Color,Urine Lt-Yellow (Lt Yel-Yel); Culture Indicated,Urine Not Indicated; Glucose, Urine Negative (Negative); Ketones,Urine Negative (Negative); Leukocyte Esterase,Urine Negative (Negative); Nitrite,Urine Negative (Negative); PH,Urine 7.5 (5.0-7.0); Protein,Urine Negative (Neg - Trace); RBC,Urine 3 /hpf (0-3); Specific Gravity,Urine 1.016 (1.001-1.035); Squamous Epithelial Cell,Urine < 1 /hpf (0-5); Urobilinogen,Urine Negative mg/dL (0.0-1.0); WBC,Urine 5 /hpf (0-5)
[2024-06-16] MEDS: SODIUM CHLORIDE 0.9% 1000 ML 1,000 ML 75 ML IV (03:57)
[2024-06-16 04:53] LABS: Basophils # (Auto) 0.1 Thou/mm3 (0.0-0.2); Basophils % (Auto) 1 % (0-2.5); Eosinophils # (Auto) 0.3 Thou/mm3 (0.0-0.5); Eosinophils % (Auto) 4 % (0-10); Hematocrit 39.1 % (41.0-53.0); Hemoglobin 13.4 g/dL (13.5-16.0); Immature Granulocytes % (Auto) 0 % (0-0); Immature Granulocytes Auto 0.01 Thou/mm3 (0.00-0.00); Lymphocytes % (Auto) 34 % (10-50); Mean Corpuscular HGB Conc 34.3 g/dl (31.0-37.0); Mean Corpuscular Volume 91 fL (80-100); Monocytes # (Auto) 0.6 Thou/mm3 (0.0-0.8); Monocytes % (Auto) 7 % (0-12); Neutrophils # (Auto) 4.9 Thou/mm3 (1.8-7.7); Neutrophils % (Auto) 55 % (37-80); Nucleated Red Blood Cell % 0 /100 WBC (0); Platelet Count 372 Thou/mm3 (140-440); RDW Standard Deviation 41.9 fL (35.1-43.9); Red Blood Count 4.32 Miln/mm3 (4.50-5.90); White Blood Count 8.8 Thou/mm3 (3.8-10.6)
[2024-06-16 05:12] LABS: Glucose Estimated Average 134 mg/dL (80-131); Hemoglobin A1C 6.3 % Hgb (4.8-6.0)
[2024-06-16 05:18] LABS: Alanine Aminotransferase 24 U/L (10-49); Albumin, Serum 4.7 gm/dL (3.4-4.8); Albumin/Globulin Ratio 1.6 (1.2-2.2); Alkaline Phosphatase 72 U/L (46-116); Anion Gap 3 (7-16); Aspartate Amino Transferase 17 U/L (0-34); BUN/Creatinine Ratio 17 Ratio (12-20); Bilirubin,Total 0.7 mg/dL (0.3-1.2); Blood Urea Nitrogen 10 mg/dL (9-23); Calcium 9.3 mg/dL (8.3-10.6); Calcium (Corrected) 9.3 mg/dL (8.5-10.1); Carbon Dioxide 26.8 mMol/L (20.0-31.0); Cardiac Risk Estimate 3.1 RATIO (4.0-6.7); Chloride 108 mMol/L (98-107); Cholesterol 148 mg/dL (132-200); Creatinine (Component) 0.6 mg/dL (0.6-1.3); Estimated Creatinine Clearance 127.5 mL/min (>60); Free T4 (Free Thyroxine) 1.27 ng/dL (0.89-1.76); Globulin 2.9 gm/dL (2.3-3.5); Glucose 110 mg/dL (74-106); HDL Cholesterol 48 mg/dL (40-60); LDL Cholesterol,Calculated 90 mg/dL (0-130); Magnesium 2.1 mg/dL (1.6-2.6); Osmolality,Calculated 275 (275-295); Phosphorous 3.7 mg/dL (2.4-5.1); Potassium 3.4 mMol/L (3.4-5.1); Sodium 138 mMol/L (136-145); Thyroid Stimulating Hormone 3.31 uIU/mL (0.55-4.78); Total Protein 7.6 gm/dL (5.7-8.2); Triglycerides 51 mg/dL (30-150); eGFR > 60 See Note
--- NOTE | 2024-06-16 06:34 | PRELIM_ITS ---
CT angiogram of the head and neck with intravenous contrast (axial sections with sagittal and coronal reformats) June 16, 2024 0450 hours Clinical History: Stroke rule out. Comparison: CT head/brain wo con dated June 15, 2024 Findings: Head: The internal carotid, middle and anterior cerebral arteries are patent bilaterally. The intracranial vertebral arteries are patent. The vertebrobasilar junction, basilar and posterior cerebral arteries are patent. No evidence of large vessel occlusion, critical stenosis or aneurysm. Neck: The aortic arch to the extent visualized as well as the origins of the right brachiocephalic, left common carotid, and left subclavian arteries are patent. The common carotid arteries, carotid bulbs, and internal and external carotid arteries are patent. The origins of the vertebral arteries are unremarkable. Vertebral arteries are codominant. No evidence of vascular occlusion, critical stenosis, dissection or aneurysm. The soft tissues of the neck are unremarkable. Degenerative changes are identified in the spine. Enlarged both lobes of the thyroid. There is thickening of the wall of the esophagus. Impression: Head: No evidence of large vessel occlusion, critical stenosis or aneurysm. Neck: No evidence of vascular occlusion, critical stenosis, dissection or aneurysm. Thickening of the wall of the esophagus, which may be due to reflux esophagitis or other inflammatory pathology. Other findings as described above. Report Electronically Signed By: Tra Solitario 06/16/2024 6:33:10 AM [EST]
--- NOTE | 2024-06-16 07:10 | PC.NURSE ---
PT TO MRI
--- NOTE | 2024-06-16 08:20 | PC.NURSE ---
FOOD TRAY AT BEDSIDE
--- NOTE | 2024-06-16 09:30 | PC.NURSE ---
PT RESTING IN BED IN NO APPARENT DISTRESS. PT DENIES PAIN OR DISCOMFORT. PT ABLE TO MOVE ALL EXTREMITIES EQUALLY. MENTAL RETARDATION NURSE EQUAL AND STRONG. PT DENIES NUMBNESS OR WEAKNESS IN LEFT ARM. EYES PERRL AT SIZE 3. PT ON CC MONITOR. NSR NOTED. FAMILY AT BEDSIDE
[2024-06-16] MEDS: PANTOPRAZOLE INJ 40 MG VIAL IVP (10:03)
--- NOTE | 2024-06-16 11:20 | PC.NURSE ---
ULTRASOUND AT BEDSIDE
--- NOTE | 2024-06-16 13:30 | ESPR_ITS ---
<Statement entered by Osbaldo Ruiz MD - 06/17/24 17:53> I discussed with and supervised the internal controls analyst physician involved in the care of this patient. Patient assessment and plan was discussed with entire medicine team, including my attending. I agree with the assessment and plan as documented by internal controls analyst doctor. Patient care was discussed with my attending physician Dr. Tonya Ruiz, PGY-2 Documentation for date of: 06/16/24 Subjective Subjective Interval history: 06/16/2024: Patient is an overnight admit. Seen and examined in hospital bed with no neurologic deficits noted. Pending neurology recommendations for the MRI brain findings which showed multiple punctate foci with increased signal throughout the white matter. Patient also had a CT head which was positive for 15 mm old, left parietal lobe lesion. Will continue monitor for any acute changes. Exam Vital Signs Temp Pulse Resp BP Pulse Ox O2 Del Method 97.7 F 66 17 151/76 H 95 Room Air 06/16/24 12:30 06/16/24 12:30 06/16/24 12:30 06/16/24 12:30 06/16/24 12:30 06/16/24 12:30 Narrative Exam Physical Exam: GENERAL: Awake, answering questions appropriately, appears stated age HEENT: NC/AT. Moist mucosa. PERRLA/EOMI. CARDIO: Heart RRR, no obvious murmurs, no JVD. PULM: No coughing or visible SOB. Lungs CTA B/L. GI: Abdomen soft, NT/ND, +BS. SKIN/MSK/EXT: No wounds/discoloration/rashes/edema/amputations noted. +Pedal pulses present B/L. NEURO: Oriented x3, CN 2-12 intact, no focal neurological deficits noted, Moves extremities x4. Objective Labs 06/16/24 04:25 06/16/24 04:25 Labs: Laboratory Results - last 24 hr 06/15/24 06/16/24 06/16/24 22:11 00:19 00:52 WBC 8.9 RBC 4.20 L Hgb 13.2 L Hct 38.8 L MCV 92 MCH 31.4 MCHC 34.0 RDW Std Deviation 43.8 Plt Count 383 Neut % (Auto) 61 Lymph % (Auto) 27 [place] % (Auto) 8 Eos % (Auto) 4 Baso % (Auto) 1 Neut # (Auto) 5.4 Lymph # (Auto) 2.4 [place] # (Auto) 0.7 Eos # (Auto) 0.3 Baso # (Auto) 0.1 Immature Gran # (Auto) 0.01 H Absolute Nucleated RBC 0.00 Immature Gran % 0 Nucleated RBC % 0 PT 10.8 INR 1.0 APTT 26.9 Sodium 144 Potassium 3.5 Chloride 108 H Carbon Dioxide 28.8 Anion Gap 7 BUN 14 Creatinine 0.7 Estim Creat Clear Calc 109.3 eGFR > 60 BUN/Creatinine Ratio [address] Glu mg/dL Hemoglobin A1c Calculated Osmolality 290 Calcium 9.8 Corrected Calcium 9.8 Phosphorus Magnesium 2.3 Total Bilirubin 0.5 AST 21 ALT 26 Alkaline Phosphatase 71 Troponin I < 0.020 Total Protein 7.9 Albumin 4.8 Globulin 3.1 Albumin/Globulin Ratio 1.5 Triglycerides Cholesterol LDL Cholesterol, Calc HDL Cholesterol Cholesterol/HDL Ratio TSH Free T4 Ur Collection Type Clean Catch Urine Color Lt-Yellow Urine Clarity Turbid A Urine pH 7.5 H Ur Specific [place] 1.016 Urine Protein Negative Urine Glucose (UA) Negative Urine Ketones Negative Urine Blood Negative Urine Nitrite Negative Urine Bilirubin Negative Urine Urobilinogen (Auto) Negative Ur Leukocyte Esterase Negative Urine RBC 3 Urine WBC 5 Ur Squamous Epith Cells < 1 Urine Bacteria None Urine Yeast (Budding) Present A Ur Culture Indicated? Not Indicated 06/16/24 04:25 WBC 8.8 RBC 4.32 L Hgb 13.4 L Hct 39.1 L MCV 91 MCH 31.0 MCHC 34.3 RDW Std Deviation 41.9 Plt Count 372 Neut % (Auto) 55 Lymph % (Auto) 34 [place] % (Auto) 7 Eos % (Auto) 4 Baso % (Auto) 1 Neut # (Auto) 4.9 Lymph # (Auto) 3.0 [place] # (Auto) 0.6 Eos # (Auto) 0.3 Baso # (Auto) 0.1 Immature Gran # (Auto) 0.01 H Absolute Nucleated RBC 0.00 Immature Gran % 0 Nucleated RBC % 0 PT INR APTT Sodium 138 Potassium 3.4 Chloride 108 H Carbon Dioxide 26.8 Anion Gap 3 L BUN 10 Creatinine 0.6 Estim Creat Clear Calc 127.5 eGFR > 60 BUN/Creatinine Ratio 17 [address]ucose [address] Glu mg/dL 134 H Hemoglobin A1c 6.3 H Calculated Osmolality 275 Calcium 9.3 Corrected Calcium 9.3 Phosphorus 3.7 Magnesium 2.1 Total Bilirubin 0.7 AST 17 ALT 24 Alkaline Phosphatase 72 Troponin I Total Protein 7.6 Albumin 4.7 Globulin 2.9 Albumin/Globulin Ratio 1.6 Triglycerides 51 Cholesterol 148 LDL Cholesterol, Calc 90 HDL Cholesterol 48 Cholesterol/HDL Ratio 3.1 L TSH 3.31 Free T4 1.27 Ur Collection Type Urine Color Urine Clarity Urine pH Ur Specific [place] Urine Protein Urine Glucose (UA) Urine Ketones Urine Blood Urine Nitrite Urine Bilirubin Urine Urobilinogen (Auto) Ur Leukocyte Esterase Urine RBC Urine WBC Ur Squamous Epith Cells Urine Bacteria Urine Yeast (Budding) Ur Culture Indicated? Quality Measures Quality Measures stroke Suspected type of Stroke: TIA Last known well (date): 06/16/24 Last known well (time): 20:00 Tenecteplase given: Reason(s) Tenecteplase not given: Stroke severity too mild (non-disabling) (and neurologist did not recommend TPA) not given Rehab services: PT evaluation ordered VTE Prophylaxis: mechanical Antithrombotic by day 2:: ordered Statin ordered: >75 y/o moderate or high intensity dose Anticoagulation ordered for A-fib or flutter (current or hx): not indicated Assessment & Plan Assessment Current Active Medications: Generic Name Dose Route Start Last Admin Trade Name Freq PRN Reason Stop Dose Admin Acetaminophen 650 mg 06/16/24 01:52 Acetaminophen 325 Mg Tablet PO 07/16/24 01:51 Q6H PRN PAIN SCALE 1-3 (mild Acetaminophen 650 mg 06/16/24 01:52 Acetaminophen 325 Mg Tablet PO 07/16/24 01:51 Q6H PRN Fever >100 Aspirin 81 mg 06/16/24 09:00 06/16/24 08:40 Aspirin Ec 81 Mg Tabec PO 07/16/24 08:59 Not Given QDAY SHAHANA Atorvastatin Calcium 80 mg 06/16/24 21:00 Atorvastatin Calcium 20 Mg Tablet PO 07/16/24 20:59 HS SHAHANA Clopidogrel Bisulfate 75 mg 06/16/24 09:00 06/16/24 08:41 Clopidogrel Bisulfate 75 Mg Tablet PO 07/16/24 08:59 Not Given QDAY SHAHANA Dextrose 25 ml 06/16/24 01:55 Dextrose 50%-Water Inj 50 Ml Syringe IV 07/16/24 01:54 Q15MIN PRN BG 50-70 responsive npo pt Dextrose 50 ml 06/16/24 01:55 Dextrose 50%-Water Inj 50 Ml Syringe IV 07/16/24 01:54 Q15MIN PRN BG <50 OR BG <70 & pt unresponsive Glucagon 1 mg 06/16/24 01:55 Glucagon Inj 1 Mg Vial IM Q15MIN PRN BG <70, and no IV access Sodium Chloride 1,000 mls @ 75 mls/hr 06/16/24 01:55 06/16/24 03:57 Ns IV 07/16/24 01:54 75 mls/hr .[id number] SHAHANA Administration Insulin Human Lispro 0 unit 06/16/24 07:30 06/16/24 12:33 Insulin Lispro (Admelog) 1 Unit/0.01 Ml Unit SC 07/16/24 07:29 Not Given ACHS SHAHANA Protocol Labetalol HCl 10 mg 06/16/24 01:52 Labetalol Inj 5 Mg/Ml Vial 20 Ml IVP 07/16/24 01:51 Q6H PRN BP >220/110 Ondansetron HCl 4 mg 06/16/24 01:52 Ondansetron Inj 2 Mg/Ml Inj 2 Ml IV 07/16/24 01:51 Q6H PRN NAUSEA OR VOMITING Protocol Pantoprazole Sodium 40 mg 06/16/24 09:00 06/16/24 10:03 Pantoprazole Inj 40 Mg Vial IVP 07/16/24 08:59 40 mg QDAY SHAHANA Administration Plan 63-year-old male with PMHx of of HTN, HLD, T2DM, chronic shoulder pain, presented with left upper extremity numbness and heaviness. Admitted for stroke rule out. #TIA #Multiple punctate foci, possible demyelinating disease LUE heaviness/numbness that started 2 hours prior to admission; patient denies previously similar symptoms in the past. Symptoms lasted about 30 minutes and resolved spontaneously. Normal neurological exam CT head showed 15 mm low-density lesion in the posterior left parietal lobe. EKG showed sinus with first-degree block, no acute ST changes. Teleneuro consulted, recommendations as below. Past bedside nursing swallow study, started on carb consistent diet A1c of 6.3; Triglycerides 51, cholesterol 148, LDL 90, HDL 48, TSH 3.31 CTA head neck negative MRI brain shows Negative for acute hemorrhage mass effect or midline shift. No acute infarct. Multiple punctate foci increased signal throughout the white matter Plan: Neurology, Dr. Silverman, consulted appreciate recommendations Continue DAPT As needed labetalol 10 mg for BP >220/110 Keep euthymic Head elevation >30 degrees Discontinued IV fluids Speech and physical therapy recommendations #Hypertension Patient on home amlodipine 10 mg daily Plan: Resumed Will monitor for any acute changes #Type 2 diabetes [id number] #Hyperlipidemia A1c of 6.3 Plan: Sliding scale insulin Carb consistent diet #Chronic shoulder pain On home cyclobenzaprine 10 mg 3 times daily Plan: Resumed Hospital Management: Lines: PIV Bowel : Senna Diet: Carb consistent GI prophylaxis: Not needed DVT prophylaxis: SCD Dispo: Pending neurology recommendations Code: Full Patient seen and examined with attending Dr. Hameed and senior resident Dr. Sara Sheldon, PGY-1
--- NOTE | 2024-06-16 18:28 | PC.NURSE ---
PT REQUESTING TO GET UP AND USE THE RESTROOM. PT DENIES WEAKNESS. PT ABLE TO AMBULATE WITHOUT DIFFICULTY. NO PAIN REPORTED
--- NOTE | 2024-06-16 21:43 | PC.NURSE ---
resting quietly. BS 110. family at bedside.
--- NOTE | 2024-06-16 22:43 | ESPR_ITS ---
Documentation for date of: 06/16/24 Subjective Subjective Interval history: Patient was seen in telemetry today without any new symptoms. Exam - Neurology Vital Signs Temp Pulse Resp BP Pulse Ox O2 Del Method 97.9 F 59 L 18 155/77 H 97 Room Air 06/16/24 22:30 06/16/24 22:30 06/16/24 22:30 06/16/24 22:30 06/16/24 22:30 06/16/24 22:30 Narrative Exam GENERAL APPEARANCE: Well hydrated, well-nourished in no acute distress. HEENT: Normocephalic, atraumatic, extraocular movements intact. Pupils: Equal reacting to light and accommodation NECK: Supple, no JVD or bruits. CARDIOVASULAR: Heart: S1, S2 heard, regular without S3-S4 or murmur no rubs or gallops. LUNGS/CHEST: Clear to auscultation bilaterally. No rails, rhonchi, or wheezing. Normal inspection. ABDOMEN: Soft, nontender, with normal bowel sounds. No pulsatile masses. No rebound, rigidity, or guarding. Normal inspection and palpation. EXTREMITIES: Normal inspection and palpation. No edema, clubbing or cyanosis. SKIN: Warm and dry without rashes. Normal inspection. MUSCULOSKELETAL: No cervical, thoracic, lumbar or midline bony tenderness. Normal inspection. NEURO: Alert, awake and oriented x3. Cranial nerves: II through XII grossly intact. Speech and language: Normal with no dysarthria or dysphasia. Motor system: Tone and bulk: Normal: Strength: 5 out of 5 in all 4 extremities; No pronator drift noted. Deep tendon reflexes: 2+ bilaterally symmetrical. Plantar reflex: Downgoing bilaterally. Sensory system: Intact to all modalities of sensation bilaterally. Coordination: Intact to rdrndn-jrwm-roevu and xnme-jzlu-okot test bilaterally. No ataxia, no dysmetria, or dysdiadochokinesia noted. No intention tremors noted. Gait: Not tested. No signs of meningeal irritation noted. PSYCHIATRIC: Normal mood and affect. Objective Labs 06/17/24 04:10 06/17/24 04:10 Labs: Laboratory Results - last 24 hr 06/15/24 06/16/24 06/16/24 22:11 00:19 00:52 WBC RBC Hgb Hct MCV MCH MCHC RDW Std Deviation Plt Count Neut % (Auto) Lymph % (Auto) [place] % (Auto) Eos % (Auto) Baso % (Auto) Neut # (Auto) Lymph # (Auto) [place] # (Auto) Eos # (Auto) Baso # (Auto) Immature Gran # (Auto) Absolute Nucleated RBC Immature Gran % Nucleated RBC % PT 10.8 INR 1.0 APTT 26.9 Sodium 144 Potassium 3.5 Chloride 108 H Carbon Dioxide 28.8 Anion Gap 7 BUN 14 Creatinine 0.7 Estim Creat Clear Calc 109.3 eGFR > 60 BUN/Creatinine Ratio [address] Glu mg/dL Hemoglobin A1c Calculated Osmolality 290 Calcium 9.8 Corrected Calcium 9.8 Phosphorus Magnesium 2.3 Total Bilirubin 0.5 AST 21 ALT 26 Alkaline Phosphatase 71 Troponin I < 0.020 Total Protein 7.9 Albumin 4.8 Globulin 3.1 Albumin/Globulin Ratio 1.5 Triglycerides Cholesterol LDL Cholesterol, Calc HDL Cholesterol Cholesterol/HDL Ratio TSH Free T4 Ur Collection Type Clean Catch Urine Color Lt-Yellow Urine Clarity Turbid A Urine pH 7.5 H Ur Specific [place] 1.016 Urine Protein Negative Urine Glucose (UA) Negative Urine Ketones Negative Urine Blood Negative Urine Nitrite Negative Urine Bilirubin Negative Urine Urobilinogen (Auto) Negative Ur Leukocyte Esterase Negative Urine RBC 3 Urine WBC 5 Ur Squamous Epith Cells < 1 Urine Bacteria None Urine Yeast (Budding) Present A Ur Culture Indicated? Not Indicated 06/16/24 04:25 WBC 8.8 RBC 4.32 L Hgb 13.4 L Hct 39.1 L MCV 91 MCH 31.0 MCHC 34.3 RDW Std Deviation 41.9 Plt Count 372 Neut % (Auto) 55 Lymph % (Auto) 34 [place] % (Auto) 7 Eos % (Auto) 4 Baso % (Auto) 1 Neut # (Auto) 4.9 Lymph # (Auto) 3.0 [place] # (Auto) 0.6 Eos # (Auto) 0.3 Baso # (Auto) 0.1 Immature Gran # (Auto) 0.01 H Absolute Nucleated RBC 0.00 Immature Gran % 0 Nucleated RBC % 0 PT INR APTT Sodium 138 Potassium 3.4 Chloride 108 H Carbon Dioxide 26.8 Anion Gap 3 L BUN 10 Creatinine 0.6 Estim Creat Clear Calc 127.5 eGFR > 60 BUN/Creatinine Ratio 17 [address]ucose [address] Glu mg/dL 134 H Hemoglobin A1c 6.3 H Calculated Osmolality 275 Calcium 9.3 Corrected Calcium 9.3 Phosphorus 3.7 Magnesium 2.1 Total Bilirubin 0.7 AST 17 ALT 24 Alkaline Phosphatase 72 Troponin I Total Protein 7.6 Albumin 4.7 Globulin 2.9 Albumin/Globulin Ratio 1.6 Triglycerides 51 Cholesterol 148 LDL Cholesterol, Calc 90 HDL Cholesterol 48 Cholesterol/HDL Ratio 3.1 L TSH 3.31 Free T4 1.27 Ur Collection Type Urine Color Urine Clarity Urine pH Ur Specific [place] Urine Protein Urine Glucose (UA) Urine Ketones Urine Blood Urine Nitrite Urine Bilirubin Urine Urobilinogen (Auto) Ur Leukocyte Esterase Urine RBC Urine WBC Ur Squamous Epith Cells Urine Bacteria Urine Yeast (Budding) Ur Culture Indicated? Assessment & Plan Assessment and plan (1) Brain TIA: Status: Acute Assessment and plan: MRI do not show any acute infarct: Scattered punctate white matter ischemic changes: not suspicious for demyelination but consistent with the underlying microvascular disease including diabetes, hypertension and hyperlipidemia. 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 Continue with aspirin and statin and better risk factors reduction.
[2024-06-17] VITALS (7 sets, daily range): BP systolic 145–161; BP diastolic 81–95; PULSE 48–68; RESP 14–20; TEMP 36–36.7; O2SAT 95–97; BMI 29.3
[2024-06-17] MEDS: ATORVASTATIN CALCIUM 20 MG TABLET 80 MG PO (01:19)
--- NOTE | 2024-06-17 02:01 | PC.NURSE ---
Pt stable. No sx. GCS 15. Report called to Layne GARBER . Pt taken to rm 260 on monitor by myself.
[2024-06-17 05:35] LABS: Basophils % (Auto) 1 % (0-2.5); Eosinophils # (Auto) 0.3 Thou/mm3 (0.0-0.5); Eosinophils % (Auto) 4 % (0-10); Hematocrit 38.9 % (41.0-53.0); Hemoglobin 13.1 g/dL (13.5-16.0); Immature Granulocytes % (Auto) 0 % (0-0); Immature Granulocytes Auto 0.01 Thou/mm3 (0.00-0.00); Lymphocytes # (Auto) 2.3 Thou/mm3 (1.0-4.8); Lymphocytes % (Auto) 30 % (10-50); Mean Corpuscular HGB Conc 33.7 g/dl (31.0-37.0); Mean Corpuscular Hemoglobin 31.1 pg (25.0-35.0); Mean Corpuscular Volume 92 fL (80-100); Monocytes # (Auto) 0.5 Thou/mm3 (0.0-0.8); Monocytes % (Auto) 7 % (0-12); Neutrophils # (Auto) 4.6 Thou/mm3 (1.8-7.7); Neutrophils % (Auto) 59 % (37-80); Nucleated Red Blood Cell % 0 /100 WBC (0); Platelet Count 367 Thou/mm3 (140-440); RDW Standard Deviation 43.7 fL (35.1-43.9); Red Blood Count 4.21 Miln/mm3 (4.50-5.90); White Blood Count 7.8 Thou/mm3 (3.8-10.6)
[2024-06-17 06:14] LABS: Alanine Aminotransferase 25 U/L (10-49); Albumin, Serum 4.2 gm/dL (3.4-4.8); Albumin/Globulin Ratio 1.6 (1.2-2.2); Alkaline Phosphatase 67 U/L (46-116); Anion Gap 10 (7-16); Aspartate Amino Transferase 19 U/L (0-34); BUN/Creatinine Ratio 16 Ratio (12-20); Bilirubin,Total 0.9 mg/dL (0.3-1.2); Blood Urea Nitrogen 11 mg/dL (9-23); Calcium 9.2 mg/dL (8.3-10.6); Calcium (Corrected) 9.2 mg/dL (8.5-10.1); Carbon Dioxide 25.4 mMol/L (20.0-31.0); Chloride 107 mMol/L (98-107); Creatinine (Component) 0.7 mg/dL (0.6-1.3); Estimated Creatinine Clearance 108.1 mL/min (>60); Globulin 2.7 gm/dL (2.3-3.5); Glucose 109 mg/dL (74-106); Magnesium 2.1 mg/dL (1.6-2.6); Osmolality,Calculated 283 (275-295); Phosphorous 3.3 mg/dL (2.4-5.1); Potassium 3.4 mMol/L (3.4-5.1); Sodium 142 mMol/L (136-145); Total Protein 6.9 gm/dL (5.7-8.2); eGFR > 60 See Note
[2024-06-17] MEDS: amLODIPine BESYLATE 5 MG TABLET 10 MG PO (08:24)
[2024-06-17] MEDS: POTASSIUM CHLORIDE 20 mEq TABCR 40 MEQ PO (08:25)
[2024-06-17] MEDS: CLOPIDOGREL BISULFATE 75 MG TABLET PO (08:25)
[2024-06-17] MEDS: ASPIRIN EC 81 MG TABEC PO (08:25)
--- NOTE | 2024-06-17 09:13 | PCS.ST ---
Tolerating diet. No dysphagia. Baseline cognitive/communication skills. No formal ST evaluations warranted at this time.
--- NOTE | 2024-06-17 14:09 | ESDS_ITS ---
<Statement entered by Osbaldo Ruiz MD - 06/17/24 18:20> I discussed with and supervised the international logistics manager physician involved in the care of this patient. Patient assessment and plan was discussed with entire medicine team, including my attending. I agree with the assessment and plan as documented by international logistics manager doctor. Patient care was discussed with my attending physician Dr. Tonya Ruiz, PGY-2 Planned Discharge Date 06/17/24 DS: Providers Provider Date of admission: 06/16/24 01:52 Primary care physician: GUY Antonio Admitting Provider: Geo Whatley MD Attending Provider on Admission: Alireza Hameed MD Consults: 06/16/24 00:17 Consult to Neurology / Tele-Neurology Stat Comment: Consulting Provider: [facility] 06/16/24 01:53 Referral Physical Therapy Routine Comment: Physician Instructions: Referral Speech Therapy Routine Comment: 06/16/24 02:07 Consult to Neurology / Tele-Neurology Stat Comment: Consulting Provider: Dae Silverman Attending Provider on DC: Nathan Sheldon MD Discharging Provider: Nathan Sheldon MD DS: Diagnosis Problem List Completed Was Problem List Reviewed/Reconciled?: Yes Hospital Course Hospital Course Hospital course: 63-year-old male with past medical history of hypertension, hyperlipidemia, type 2 diabetes, chronic shoulder pain who presented to the ED on 06/16 after he started developing left arm numbness which subsided within 30 minutes. In the ED, patient was hypertensive but rest of vitals were normal. EKG showed sinus rhythm with fascicular block but no acute ST changes. CT of the head showed a 15 mm low-density lesion in the posterior left parietal lobe. Teleneurology was consulted and based upon their assessment there was concern for possible TIA. Patient was started on DAPT due to high risk TIA secondary to ABCD2 score and admitted to the hospital. An MRI brain was ordered which was negative for any acute infarct but there were multiple punctate foci with increased signal throughout the white matter. Neurology, Dr. Silverman, was consulted and stated that the MRI was showing underlying microvascular disease, and that the CT showed an old infarct. Patient was clinically stable and did not have any neurologic deficits and will be discharged with the following clear discharge instructions. Please take aspirin 81mg daily and Plavix (clopidogrel) 75mg daily for 21 days for High-Risk TIA Please take atorvastatin 80mg daily at night Stop taking Ibuprofen, simvastatin and diclofenac Follow-up with GUY Jain at [facility] on Friday 06/23 at 12:00pm Ask for a referral to see Dr. Silverman (neurologist) Follow up with Dr. Silverman in 3 weeks. If your symptoms or if you develop new chest pain, shortness of breath, headache, dizziness or weakness - please come back to the ED immediately Hospital Diagnosis: #TIA #Hypertension #Type 2 diabetes [id number] #Hyperlipidemia #Chronic shoulder pain Nathan Sheldon, PGY-1 Status at Discharge Overall status at discharge: patient is progressing back to baseline Time Spent with Patient Time attestation: Total time spent providing and/or coordinating discharge services: 45 minutes Time spent: Greater than 30 minutes Exam Vital Signs Temp Pulse Resp BP Pulse Ox O2 Del Method 98.1 F 67 19 151/86 H 96 Room Air 06/17/24 12:06/17/24 12:06/17/24 12:06/17/24 12:06/17/24 12:06/17/24 12:00 Narrative Exam Physical Exam: GENERAL: Awake, answering questions appropriately, appears stated age HEENT: NC/AT. Moist mucosa. PERRLA/EOMI. CARDIO: Heart RRR, no obvious murmurs, no JVD. PULM: No coughing or visible SOB. Lungs CTA B/L. GI: Abdomen soft, NT/ND, +BS. SKIN/MSK/EXT: No wounds/discoloration/rashes/edema/amputations noted. +Pedal pulses present B/L. NEURO: Oriented x3, CN 2-12 intact, no focal neurological deficits noted, Moves extremities x4. Discharge Plan Plan Patient Disposition: HOME (Self Care) Patient condition on transfer: Stable Care Plan Goals: Please take aspirin 81mg daily and Plavix (clopidogrel) 75mg daily for 21 days for High-Risk TIA Please take atorvastatin 80mg daily at night Stop taking Ibuprofen, simvastatin and diclofenac Follow-up with GUY Jain at [facility] on Friday 06/23 at 12:00pm Ask for a referral to see Dr. Silverman (neurologist) Follow up with Dr. Silverman in 3 weeks. If your symptoms or if you develop new chest pain, shortness of breath, headache, dizziness or weakness - please come back to the ED immediately [place] 81 mg de aspirina al d?a y Plavix (clopidogrel) 75 mg al d?a tamiko 21 d?as para el AIT de alto riesgo. [place] atorvastatina 80 mg al d?a por la noche. Deje de taylor ibuprofeno, simvastatina y diclofenaco. Seguimiento con GUY Jain en [facility] el mi?rcoles a las 12:00 p.m. Solicite merly derivaci?n para eula al Dr. Silverman (neur?logo). Nabil un seguimiento con el Dr. Silverman en 3 semanas. Si tiene s?ntomas o si desarrolla nuevo dolor en el pecho, dificultad para respirar, dolor de dez, mareos o debilidad, regrese al servicio de urgencias de inmediato. Prescriptions/Referrals Prescriptions/Med Rec: New atorvastatin 20 mg Tablet 80 mg PO HS 30 Days Qty: 120 0RF aspirin [Ecotrin Low Strength] 81 mg Tablet,Delayed Release (Dr/Ec) 81 mg PO QDAY 21 Days Qty: 21 0RF clopidogrel 75 mg Tablet 75 mg PO QDAY 21 Days Qty: 21 0RF Continued Veramyst 10 GM spray,suspension 2 spry NASAL QDAY Qty: 0 cyclobenzaprine 10 mg tablet 10 mg PO TID PRN (Reason: muscle spasm) Patient Comments: TAKE 1 TABLET BY MOUTH 3 TIMES A DAY NEEDED FOR MUSCLE SPASMS FOR 10 DAYS amlodipine 10 mg tablet 10 mg PO QDAY metformin 500 mg tablet 500 mg PO BID Discontinued diclofenac sodium 75 MG tablet,delayed release (DR/EC) 75 mg PO BID Qty: 0 ibuprofen 800 mg tablet 800 mg PO TID PRN (Reason: pain) Qty: 30 0RF simvastatin 20 mg tablet 20 mg PO QDAY Referrals: Lena Lieberman FNP-C [Referring Provider] - 06/23/24 12:00 pm (Hospital follow-up for TIA; risk management) Dae Silverman MD [Physician] - Patient/Caregiver Discharge Instructions Education Materials: Risk Factors for Stroke, ED TIA: Transient Ischemic Attack Print Language: Setswana Stand Alone Forms: Nay Award Info., Patient Portal Info Letter Discharge Order Discharge Orders: Discharge (Routine); Ordered 06/17/24 Ordered By: Nathan Sheldon Quality Discharge Quality Measures VTE prophylaxis
--- NOTE | 2024-06-17 14:44 | PC.PT ---
PT eval only. Patient is xI with bed mobility, transfers, and ambulation with no DME. Patient is clear to ambulate in the halls and to the bathroom with no DME. RN made aware.
--- NOTE | 2024-06-17 14:53 | PC.SS ---
SS met with patient regarding his d/c plan.? Pt is alert/oriented.? Pt was admitted for Stroke R/O.? Pt confirmed demographic and contact information is correct on facesheet.? Pt resides with .? Pt ambulates independently without assistance or DME.? Pt is ok with all ADLs.? Pt named his , Cathy White medical decision maker if he is unable.? Patient?s choice is to return home upon d/c.? Per , physician resident has schedule pt with follow up appointment with PCP.? is requesting patient's appointment be scheduled with a PCP who speaks Greek.? SS called and spoke to Kerrie from [facility] who confirmed patient's appointment is June 23, [address] Lena Lieberman.? SS has informed pt and .?? D/C plan:? Return home Next of Kin:? ?Cathy White, phone# [phone] PCP:? Will establish with Dr. Lena Lieberman at [facility] Address:? Correct on facesheet
--- NOTE | 2024-06-17 21:50 | VVPN_ITS ---
Telemedicine visit statement This visit was conducted with the use of interactive audio and video telecommunications system that permits real time communication between the patient and the provider. Patient's verbal consent for virtual visit was obtained on 06/17/24. Documentation for date of: 06/17/24 Subjective Subjective Interval history: Patient was seen in telemetry today. No recurrence of similar symptoms reported after admission. His left upper extremity weakness lasted for 30 minutes. Denies any pain in the neck radiating down the left upper extremity. Virtual exam Vital Signs Temp Pulse Resp BP Pulse Ox O2 Del Method 98.1 F 67 19 151/86 H 96 Room Air 06/17/24 12:00 06/17/24 12:00 06/17/24 12:00 06/17/24 12:00 06/17/24 12:00 06/17/24 12:00 Objective Labs 06/17/24 04:10 06/17/24 04:10 Labs: Laboratory Results - last 24 hr 06/17/24 04:10 WBC 7.8 RBC 4.21 L Hgb 13.1 L Hct 38.9 L MCV 92 MCH 31.1 MCHC 33.7 RDW Std Deviation 43.7 Plt Count 367 Neut % (Auto) 59 Lymph % (Auto) 30 [place] % (Auto) 7 Eos % (Auto) 4 Baso % (Auto) 1 Neut # (Auto) 4.6 Lymph # (Auto) 2.3 [place] # (Auto) 0.5 Eos # (Auto) 0.3 Baso # (Auto) 0.0 Immature Gran # (Auto) 0.01 H Absolute Nucleated RBC 0.00 Immature Gran % 0 Nucleated RBC % 0 Sodium 142 Potassium 3.4 Chloride 107 Carbon Dioxide 25.4 Anion Gap 10 BUN 11 Creatinine 0.7 Estim Creat Clear Calc 108.1 eGFR > 60 BUN/Creatinine Ratio 16 Glucose 109 H Calculated Osmolality 283 Calcium 9.2 Corrected Calcium 9.2 Phosphorus 3.3 Magnesium 2.1 Total Bilirubin 0.9 AST 19 ALT 25 Alkaline Phosphatase 67 Total Protein 6.9 Albumin 4.2 D Globulin 2.7 Albumin/Globulin Ratio 1.6 Assessment & Plan Problem List (1) Brain TIA: Status: Acute Assessment and plan: Reassurance given to the patient regarding the negative MRI brain for acute stroke. scattered white matter changes are associated with the chronic microvascular ischemia: Diabetes hypertension and hyperlipidemia. Continue with aspirin 81 mg and Plavix 75 mg. Patient is stable for discharge home I will see him back in 3 weeks in [facility] (2) Left arm weakness: Status: Resolved
== END 2024-06-17 14:30 | disposition home or self-care (01) | DRG 47 ==
LOC: SERX 06-16 00:56 → SERHOLD 06-16 02:43 → S2NX 06-17 01:50
PROVIDERS: Physician Assistant; Admitting Provider Internal Medicine; Emergency Provider Emergency Medicine; PCP Nurse Practitioner Family; Visit Provider Student in an Organized Health Care Education/Training Program
DX: G45.9 Transient cerebral ischemic attack, unspecified (principal); R53.1 Weakness; R29.700 NIHSS score 0; I10 Essential (primary) hypertension; E78.5 Hyperlipidemia, unspecified; E11.9 Type 2 diabetes mellitus without complications; M25.519 Pain in unspecified shoulder; Z63.4 Disappearance and death of family member; G89.29 Other chronic pain; Z79.899 Other long term (current) drug therapy; Z79.82 Long term (current) use of aspirin; I44.60 Unspecified fascicular block; Z87.891 Personal history of nicotine dependence; Z79.02 Long term (current) use of antithrombotics/antiplatelets; R50.9 Fever, unspecified; Z79.84 Long term (current) use of oral hypoglycemic drugs
CPT/HCPCS: 36415; 70450; 70496; 70498; 70551; 80053; 80061; 81001; 83036; 83735; 84100; 84439; 84443; 84484; 85025; 85610; 85730; 93306; 97161; A4649; J2470; J7030; Q9967; A9270